=== PATIENT | male | born 1945 | race Caucasian/White ===

== ENCOUNTER → 2020-09-29 11:06 | Outpatient (REF) | payer MEDICARE, OTHER, SELFPAY | LOC: ANHLAB 11:06 | PROVIDERS: Visit Provider Nurse Practitioner | DX: C44.329 Squamous cell carcinoma of skin of other parts of face (principal) | CPT/HCPCS: 88305; 88331 ==

== ENCOUNTER 2023-05-23 14:59 | Outpatient (NON) | payer MEDICARE, OTHER, SELFPAY | END 2023-05-23 15:00 | disposition home or self-care (01) | LOC: ANHLAB 14:59 | PROVIDERS: Visit Provider Nurse Practitioner | DX: C44.319 Basal cell carcinoma of skin of other parts of face (principal) | CPT/HCPCS: 88305; 88331 ==